=== PATIENT | male | born 1990 | race African-American/Black ===

== ENCOUNTER 2016-10-13 00:41 | Emergency (ER) | payer OTHER ==
[~2016-10-13] VITALS: Ht 185.4 cm; Wt 78.6 kg
[2016-10-13 00:44] VITALS: BP 144/88; PULSE 118; TEMP 97.8
== END 2016-10-13 03:00 | disposition home or self-care (01) ==
LOC: COL.ER 00:41
DX: S01.511A Laceration without foreign body of lip, initial encounter (principal); W10.9XXA Fall (on) (from) unspecified stairs and steps, initial encounter; S02.5XXA Fracture of tooth (traumatic), initial encounter for closed fracture; Z53.21 Procedure and treatment not carried out due to patient leaving prior to being seen by health care provider; Z72.89 Other problems related to lifestyle; F15.10 Other stimulant abuse, uncomplicated